=== PATIENT | female | born 1955 | race Caucasian/White ===

== ENCOUNTER 2018-09-12 17:29 | Inpatient (IN) ==
--- NOTE | 2018-09-12 17:36 | ED ---
HPI General Chief Complaint: Chest Pain Stated Complaint: Chest Pain Time Seen by Provider: 09/12/18 17:33 History of Present Illness HPI narrative: 63-year-old female with a history of lupus, anxiety, depression, DVT presents to the emergency department for evaluation of chest pain. Patient states that the past 2 days she has had an episode of chest pain each day lasting approximately 1 hour, states it was mild intermittent chest pain. States that today she has had an episode of chest pain lasting the last 4 hours and states that the severity has been increasing. Describes it as a pressure to the left anterior chest. States that she is now starting to feel short of breath as well. States she is also having mild nausea. She denies any fever, chills, vomiting, diarrhea, abdominal pain, cough or cold symptoms, swelling of the extremities. Denies any recent travel. Denies any surgeries. No other complaints. Related Data Home Medications Medication Instructions Recorded Confirmed Aleve 09/12/18 alprazolam [Xanax] 0.5 mg PO TID 09/12/18 09/12/18 bupropion HCl [Wellbutrin XL] 300 mg PO QAM 09/12/18 09/12/18 calcium carbonate-vitamin D3 09/12/18 [Calcium 500 + D (D3)] denosumab [Prolia] 60 mg SUBCUT [id number] 09/12/18 09/12/18 fluoxetine [Prozac] 40 mg PO DAILY 09/12/18 09/12/18 hydroxychloroquine [Plaquenil] 200 mg PO BID 09/12/18 09/12/18 levothyroxine [Synthroid] 137 mcg PO DAILY 09/12/18 09/12/18 prednisone 09/12/18 09/12/18 topiramate [Topamax] 100 mg PO Q4H 09/12/18 09/12/18 Allergies Allergy/AdvReac Type Severity Reaction Status Date / Time meperidine Allergy Severe Nausea/Vomi Unverified 05/14/17 13:43 ting Review of Systems ROS: all other systems reviewed are negative [facility] Medical History Medical History History of DVT (deep vein thrombosis) (Acute) History of anxiety (Acute) History of colon cancer (Acute) History of depression (Acute) History of hypothyroidism (Acute) History of hysterectomy (Acute) History of lupus (Acute) History of neuropathy (Acute) Surgical History Surgical History History of cholecystectomy (Acute) History of parotidectomy (Acute) History of splenectomy (Acute) History of thyroid surgery (Acute) History of thyroidectomy (Acute) Social History Social History Substance History: No History of Abuse Second Hand Smoke Exposure: No Smoking Status: Never smoker How Often Do You Have a Drink Containing Alcohol: Never Recent Travel in [facility] within the Last 8 Weeks: No Recent Out of Country Travel within the Last 8 Weeks: No Exam Narrative Exam Narrative: GENERAL: Well-nourished and well-developed pleasant patient in no acute distress who is nontoxic appearing. SKIN: Warm and dry without any obvious rashes or lesions. HEAD: Normocephalic and atraumatic. EYES: No injection, drainage, or hyphema noted. PERRLA. EOMI. ENT: No nasal drainage noted. Oropharynx is clear. NECK: Supple and the trachea is midline. CARDIOVASCULAR: Regular rate and rhythm. RESPIRATORY: Breath sounds are equal bilaterally with no accessory muscle use, wheezing, rhonchi, or crackles. Mild tenderness to palpation of left anterior chest wall. GASTROINTESTINAL: Abdomen is soft, non-tender, and nondistended. MUSCULOSKELETAL: No obvious deformities, swelling, cyanosis, or ecchymosis is present throughout the upper and lower extremities. Patient has full range of motion without any signs of neurovascular compromise. Distal pulses are 2+ throughout. NEUROLOGICAL: Awake, alert, and oriented. Normal speech and gait. Cranial nerves are grossly intact. Course Initial Documented Vital Signs Pulse Rate 90 09/12/18 17:34 Pulse Oximetry 95 09/12/18 17:34 Last Documented Vital Signs Pulse Rate 70 09/12/18 18:36 Respiratory Rate 16 09/12/18 18:36 Blood Pressure 116/68 09/12/18 18:36 Pulse Oximetry 96 09/12/18 18:36 Medical Decision Making ITZEL Attestation ITZEL supervised visit: Yes Attestation: I, Dr. Hastings, have reviewed the advance practice practitioner's documentation and am in agreement, met with the patient face to face, made the diagnosis, and the medical decision making was done by me. *My assessment and Findings: This patient is awake and alert. She is complaining with intermittent left-sided chest pain which is been bothering her for the last several days but which has become worse today. Please see Suni Huynh, PA-C's note for full details of the H&P and disposition. MDM Narrative Medical decision making narrative: 63-year-old female presents to the emergency department for evaluation of left side chest pain and shortness of breath. Patient is afebrile, vital signs are stable. IV access is obtained, labs have been drawn and sent. Patient is placed on cardiac telemetry and pulse oximetry monitoring. EKG shows sinus rhythm with nonspecific T wave abnormalities in lead V3, no acute ST elevations or depressions. EKG reviewed by my attending physician. Patient administered nitro sublingual tablets for chest pain. CBC is unremarkable. CMP is unremarkable. Troponin is 0.03. Chest x-ray is negative. CT pulmonary angiogram is negative for PE. Patient reassessed and reports that nitro tablets greatly improved her chest pain, states that she now only has minimal pain with inspiration. Discussed with the patient and she is agreeable to stay for observation and chest pain center. I discussed the case with my attending physician Dr. Hastings who is aware of the patients history, physical examination findings, and treatment plan. Medical Screen Exam Complete: Yes Emergency Medical Condition: Yes Differential Diagnosis Differential Diagnosis: ACS versus PE versus pleurisy versus musculoskeletal pain Lab Data Result diagrams: 09/12/18 17:53 09/12/18 17:53 Lab Results 09/12/18 09/12/18 Range/Units 17:53 17:53 CBC w Diff Auto diff final WBC 8.7 (4.0-11.0) th/mm3 RBC 4.25 (4.00-5.30) mil/mm3 Hgb 13.3 (11.6-15.3) gm/dL Hct 41.3 (35.0-46.0) % MCV 97.3 (80.0-100.0) fL MCH 31.3 (27.0-34.0) pg MCHC 32.1 (32.0-36.0) % RDW 13.5 (11.6-17.2) % Plt Count 242 (150-450) th/mm3 MPV 9.4 (7.0-11.0) fL Neut % (Auto) 75.9 H (16.0-70.0) % Lymph % (Auto) 15.8 (9.0-44.0) % [place] % (Auto) 6.1 (0.0-8.0) % Eos % (Auto) 1.8 (0.0-4.0) % Baso % (Auto) 0.4 (0.0-2.0) % Neut # (Auto) 6.6 (1.8-7.7) th/mm3 Lymph # (Auto) 1.4 (1.0-4.8) th/mm3 [place] # (Auto) 0.5 (0.0-0.9) th/mm3 Eos # (Auto) 0.2 (0.0-0.4) th/mm3 Baso # (Auto) 0.0 (0.0-0.2) th/mm3 WBC Differential . Differential Comment . Sodium 141 (136-145) meq/L Potassium 3.9 (3.5-5.1) meq/L Chloride 111 H (98-107) meq/L Carbon Dioxide 22.3 (21.0-32.0) meq/L Anion Gap 8 (5-15) meq/L BUN 15 (7-18) mg/dL Creatinine 0.98 (0.50-1.00) mg/dL Estimated GFR 57 L (>89) mL/min Random Glucose 95 (74-106) mg/dL Calcium 8.2 L (8.5-10.1) mg/dL Total Bilirubin 0.4 (0.2-1.0) mg/dL AST 25 (15-37) U/L ALT 17 (10-53) U/L Alkaline Phosphatase 58 (45-117) U/L Troponin I 0.03 (0.02-0.05) ng/mL Total Protein 6.8 (6.4-8.2) g/dL Albumin 3.0 L (3.4-5.0) g/dL Imaging Data Radiologist's impression: Chest X-Ray 09/12/18 17:34 CONCLUSION: No acute intrathoracic disease. Chest CTA 09/12/18 17:43 CONCLUSION: 1. No CT evidence for pulmonary artery embolism as questioned. 2. Minimal atelectasis in the left lower lobe. ECG Data EKG Prior to Arrival: No Attestation: I personally reviewed and interpreted this ECG as follows: (EKG shows normal sinus rhythm with a rate of 77. She has some nonspecific lateral T wave abnormalities.) Prior ECG tracings: available for review Discharge Plan Discharge Disposition Patient Disposition: ED Admit(ED Internal Use Only) Discharge Order Discharge Orders: ED Use Only Admit Order (Routine); Ordered 09/12/18 Ordered By: Soraida Hastings Discharge Details Diagnosis: Chest pain Physicians Team ED Provider: Soraida Hastings ED Midlevel Provider: Suni Huynh Primary Care Provider: Jim Camara Attending Provider: Brice Zavala Status ED Status: Admitted Patient
--- NOTE | 2018-09-12 17:44 | ED ---
HPI General Chief complaint: Chest Pain Stated complaint: Chest Pain Time Seen by Provider: 09/12/18 17:33 Related Data Allergies Allergy/AdvReac Type Severity Reaction Status Date / Time meperidine Allergy Severe Nausea/Vomi Unverified 05/14/17 13:43 ting Discharge Plan Physicians Team ED Provider: Soraida Hastings ED Midlevel Provider: Suni Huynh Primary Care Provider: Jim Camara Status ED Status: With Doctor
--- NOTE | 2018-09-12 17:55 | XR ---
EXAM DATE: 09/12/2018 5:52 PM EST AGE/SEX: 63 years / Female INDICATIONS: Left sided chest pain. CLINICAL DATA: This is the patient's initial encounter. Patient reports that signs and symptoms have been present for 1 day and indicates a pain score of 4/10. MEDICAL/SURGICAL HISTORY: . Carcinoma, colon. None. COMPARISON: . FINDINGS: A single AP view of the chest demonstrates the lungs to be symmetrically aerated without evidence of mass, infiltrate or effusion. The cardiomediastinal contours are unremarkable. Osseous structures a re intact. CONCLUSION: No acute intrathoracic disease. Electronically signed by: Marky Mcintyre MD Board Certified Radiologist 09/12/2018 5:53 PM EST
[2018-09-12 17:58] LABS: Baso % (Auto) 0.4 % (0.0-2.0); Eos # (Auto) 0.2 th/mm3 (0.0-0.4); Eos % (Auto) 1.8 % (0.0-4.0); Hematocrit 41.3 % (35.0-46.0); Hemoglobin 13.3 gm/dL (11.6-15.3); Lymph # (Auto) 1.4 th/mm3 (1.0-4.8); Lymph % (Auto) 15.8 % (9.0-44.0); Mean Corpuscular HGB Conc 32.1 % (32.0-36.0); Mean Corpuscular Hemoglobin 31.3 pg (27.0-34.0); Mean Corpuscular Volume 97.3 fL (80.0-100.0); Mean Platelet Volume 9.4 fL (7.0-11.0); Mono # (Auto) 0.5 th/mm3 (0.0-0.9); Mono % (Auto) 6.1 % (0.0-8.0); Neut # (Auto) 6.6 th/mm3 (1.8-7.7); Neut % (Auto) 75.9 % (16.0-70.0); Platelet Count 242 th/mm3 (150-450); Red Blood Count 4.25 mil/mm3 (4.00-5.30); Red Cell Distribution Width 13.5 % (11.6-17.2); White Blood Count 8.7 th/mm3 (4.0-11.0)
[2018-09-12 18:09] LABS: Chloride 111 meq/L (98-107); Potassium 3.9 meq/L (3.5-5.1); Sodium 141 meq/L (136-145)
[2018-09-12 18:12] LABS: Calcium 8.2 mg/dL (8.5-10.1)
[2018-09-12 18:13] LABS: Anion Gap 8 meq/L (5-15); Blood Urea Nitrogen 15 mg/dL (7-18); Carbon Dioxide 22.3 meq/L (21.0-32.0); Glucose,Random 95 mg/dL (74-106)
[2018-09-12 18:16] LABS: Alanine Aminotransferase 17 U/L (10-53); Aspartate Aminotransferase 25 U/L (15-37); Glomerular Filtration Rate 57 mL/min (>89)
[2018-09-12 18:17] LABS: Total Protein 6.8 g/dL (6.4-8.2)
[2018-09-12 18:19] LABS: Alkaline Phosphatase 58 U/L (45-117)
[2018-09-12 18:21] LABS: Troponin I 0.03 ng/mL (0.02-0.05)
--- NOTE | 2018-09-12 18:54 | CT ---
EXAM DATE: 09/12/2018 6:50 PM EST AGE/SEX: 63 years / Female INDICATIONS: Left chest pain and pressure. CLINICAL DATA: This is the patient's initial encounter. Patient reports that signs and symptoms have been present for 2 days and indicates a pain score of 6/10. MEDICAL/SURGICAL HISTORY: Lupus. Deep venous thrombosis. Carcinoma, colon. Colon resection. Chol ecystectomy. Hysterectomy. RADIATION DOSE: 19.98 CTDI (mGy) COMPARISON: [facility], CHEST 1V SINGLE AP, 09/12/2018. . TECHNIQUE: Volumetric scanning was performed using a multi-row detector CT scanner during bolus infu cyndee of 75 ml Omnipaque 350 (iohexol) nonionic water-soluble contrast as a single exam dose. The wesly a was post processed with a variety of visualization algorithms including full volume maximum intensi ty projection and sliding thin slab reformation. Using automated exposure control and adjustment of the mA and/or kV according to patient size, radiation dose was kept as low as reasonably achievable t o obtain optimal diagnostic quality images. DICOM format image data is available electronically for review and comparison. FINDINGS: Pulmonary Arteries: No filling defects are seen in the pulmonary arteries through the segmental vess els. The main pulmonary artery is normal in diameter. Lung: Minimal groundglass opacities in the posterior left lower lobe. Pleura: No effusion, significant pleural thickening or pneumothorax. Mediastinum: Heart is unremarkable without pericardial effusion.No evidence of mediastinal or hilar adenopathy. Osseous Structures: No abnormal focal lytic or blastic bony lesions. Other: Visulaized upper abdomen is unremarkable. CONCLUSION: 1. No CT evidence for pulmonary artery embolism as questioned. 2. Minimal atelectasis in the left lower lobe. Electronically signed by: Torin Solorzano MD Board Certified Radiologist 09/12/2018 6:52 PM SUM[facility] Garcia
[2018-09-12] MEDS ORDERED: Sodium Chlor 0.9% Inj 500 ML IV.SIG SCH (19:00)
[2018-09-12 21:33] LABS: Troponin I 0.03 ng/mL (0.02-0.05)
[2018-09-12] MEDS ORDERED: Topiramate 100 MG Tablet PO SCH (22:00)
[2018-09-12] MEDS: Hydroxychloroquine 200 MG Tablet PO SCH (22:14)
[2018-09-12] MEDS ORDERED: ALPRAZolam 0.5 MG Tablet PO ONE (23:07)
[2018-09-13 00:21] LABS: Troponin I 0.04 ng/mL (0.02-0.05)
--- NOTE | 2018-09-13 07:49 | P.HP ---
History of Present Illness Primary Care Physician: Jim Camara Chief Complaint: chest pain History of Present Illness: This is a 63-year-old female patient with a known medical history of lupus, anxiety and depression, hypothyroidism and history of DVT who presented to the ED with complaints of chest pain. Patient states that the last 4 days she has had intermittent chest pain, she states that the pain is located in her midsternal chest, is pressure-like in nature, radiates up her neck and is associated with nausea. Denies any associated vomiting, shortness of breath or sweating. Patient states that when the pain occurs she does not notice any aggravating factors. She states that the pain lasted roughly an hour and then resolves on its own. It is worse with deep breathing. Does state that the pain improved with use of nitroglycerin in the ED. She states that she has never had this type of pain before. She denies any recent fever, chills, cough , headache, vomiting, nausea, vomiting, diarrhea or dysuria. Her appetite has been good. She states that she may be dehydrated, she states she has not been drinking enough fluids lately. 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 Denies any cardiovascular disease. Family history is unknown, patient is adopted. Denies smoking or alcohol. - Diagnosis (1) Chest pain (2) Depression (3) Hypothyroidism Review of Systems All other systems reviewed negative except as stated in HPI PMFSH - History History Provided By: Patient - Medical History Medical History: Medical History (Last Reviewed 09/13/18 @ 08:49 by Kaelyn Nicholas) History of DVT (deep vein thrombosis) History of anxiety History of colon cancer History of depression History of hypothyroidism History of hysterectomy History of lupus History of neuropathy - Surgical History Surgical History: Surgical History (Last Reviewed 09/13/18 @ 08:49 by Kaelyn Nicholas) History of cholecystectomy History of parotidectomy History of splenectomy History of thyroid surgery History of thyroidectomy - Family History Family History: Family History (Last Updated 09/13/18 @ 08:49 by Kaelyn Nicholas) Other Family history non-contributory - Social History I have reviewed the patient's Social History: Yes - Tobacco History Second Hand Smoke Exposure: No Tobacco Use In Past 30 Days: No Smoking Status: Never smoker - Alcohol History How Often Do You Have a Drink Containing Alcohol: Never - Substance Use History Substance History: No History of Abuse - Travel History Recent Travel in the [place] Within the Last 8 Weeks: No Recent Travel Out of the Country Within the Last 8 Weeks: No - Immunization History Tetanus Immunization: Unsure Medications and Allergies Active Medications: Active Medications Bupropion HCl (Wellbutrin Sr) 150 mg PO Q12H [facility] Fluoxetine HCl (Prozac) 40 mg PO DAILY [facility] Hydroxychloroquine Sulfate (Plaquenil) 200 mg PO BID [facility] Last Admin: 09/12/18 22:14 Dose: 200 mg Levothyroxine Sodium (Synthroid) 112 mcg PO DAILY [facility] Levothyroxine Sodium (Synthroid) 25 mcg PO DAILY [facility] Sodium Chloride (Ns Flush) 2 ml IV.FLUSH UNSCH PRN PRN Reason: FLUSH AFTER USING IV ACCESS Sodium Chloride (Ns Flush) 2 ml IV.FLUSH BID [facility] Last Admin: 09/12/18 22:16 Dose: 2 ml Sodium Chloride (Ns Flush) 2 ml IV.FLUSH PRN PRN PRN Reason: FLUSH AFTER USING IV ACCESS Topiramate (Topamax) 50 mg PO HS [facility] Topiramate (Topamax) 25 mg PO DAILY [facility] Allergies Allergy/AdvReac Type Severity Reaction Status Date / Time meperidine Allergy Severe Nausea/Vomi Verified 09/12/18 22:13 ting Home Medications Medication Instructions Recorded Confirmed Type Aleve 09/12/18 History alprazolam [Xanax] 0.5 mg PO TID 09/12/18 09/12/18 History bupropion HCl [Wellbutrin XL] 300 mg PO QAM 09/12/18 09/12/18 History calcium carbonate-vitamin D3 500 mg PO DAILY 09/12/18 09/12/18 History [Calcium 500 + D (D3)] denosumab [Prolia] 60 mg SUBCUT [id number] 09/12/18 09/12/18 History fluoxetine [Prozac] 40 mg PO DAILY 09/12/18 09/12/18 History hydroxychloroquine [Plaquenil] 200 mg PO BID 09/12/18 09/12/18 History levothyroxine [Synthroid] 137 mcg PO DAILY 09/12/18 09/12/18 History prednisone 09/12/18 09/12/18 History topiramate [Topamax] See Label Instructions .ROUTE 09/12/18 09/12/18 History .COMPLEX Exam Vital signs: Vital Signs 09/12/18 17:34 09/12/18 17:56 09/12/18 18:18 Temperature Pulse Rate 90 76 86 Respiratory Rate 20 16 Blood Pressure 166/87 H 122/54 L Pulse Oximetry 95 98 96 09/12/18 18:23 09/12/18 18:30 09/12/18 18:36 Temperature Pulse Rate 80 76 70 Respiratory Rate 16 16 16 Blood Pressure 133/69 100/69 116/68 Pulse Oximetry 96 95 96 09/12/18 21:30 09/12/18 22:00 09/12/18 22:07 Temperature 98.7 F Pulse Rate 71 77 Respiratory Rate 18 Blood Pressure 128/73 Pulse Oximetry 97 97 09/12/18 23:59 09/13/18 00:00 09/13/18 04:00 Temperature 96.1 F L 96.4 F L Pulse Rate 69 69 70 Respiratory Rate 18 17 Blood Pressure 119/65 119/60 Pulse Oximetry 97 96 09/13/18 04:15 Temperature Pulse Rate Respiratory Rate Blood Pressure Pulse Oximetry 97 Intake & Output 09/12/18 09/13/18 09/13/18 18:59 06:59 18:59 Intake Total 980 / 980 Balance 980 / 980 Weight 100 kg 103.2 kg Intake: IV 500 / 500 NS Inj 500 ML @ 1000 mls/hr IV. 500 / 500 SIG BOLUS MELINDA Rx#:[id number] Oral 480 / 480 Other: Weight On Admission 103.2 kg Narrative: GENERAL: Well-developed, obese female patient in [facility]. SKIN: Warm and dry. No rash. HEAD: Normocephalic. Atraumatic. EYES: Pupils equal and round. No scleral icterus. No injection or drainage. ENT: No nasal bleeding or discharge. Mucous membranes pink and moist. NECK: Supple. Trachea midline. CARDIOVASCULAR: Regular rate and rhythm. S1, S2 noted. No murmur appreciated. No chest pain to palpation RESPIRATORY: No accessory muscle use. Clear to auscultation. Breath sounds equal bilaterally. GASTROINTESTINAL: Abdomen soft, non-tender, nondistended. Normoactive bowel sounds x4. MUSCULOSKELETAL: No obvious deformities. Extremities without clubbing, cyanosis , or edema. NEUROLOGICAL: Awake and alert. No obvious cranial nerve deficits. Motor grossly within normal limits. 5/5 muscle strength in bilateral upper and lower extremities. Normal speech. PSYCHIATRIC: Appropriate mood and affect; insight and judgment normal. Results - Labs CBC & Chem 7: 09/12/18 17:53 09/12/18 17:53 Labs: Laboratory Results - last 24 hr 09/12/18 09/12/1818 17:53 17:53 21:02 CBC w Diff Auto diff final WBC 8.7 RBC 4.25 Hgb 13.3 Hct 41.3 MCV 97.3 MCH 31.3 MCHC 32.1 RDW 13.5 Plt Count 242 MPV 9.4 Neut % (Auto) 75.9 H Lymph % (Auto) 15.8 [place] % (Auto) 6.1 Eos % (Auto) 1.8 Baso % (Auto) 0.4 Neut # (Auto) 6.6 Lymph # (Auto) 1.4 [place] # (Auto) 0.5 Eos # (Auto) 0.2 Baso # (Auto) 0.0 WBC Differential . Differential Comment . Sodium 141 Potassium 3.9 Chloride 111 H Carbon Dioxide 22.3 Anion Gap 8 BUN 15 Creatinine 0.98 Estimated GFR 57 L Random Glucose 95 Calcium 8.2 L Total Bilirubin 0.4 AST 25 ALT 17 Alkaline Phosphatase 58 Total Creatine Kinase 161 Troponin I 0.03 0.03 Total Protein 6.8 Albumin 3.0 L 09/12/18 23:40 CBC w Diff WBC RBC Hgb Hct MCV MCH MCHC RDW Plt Count MPV Neut % (Auto) Lymph % (Auto) [place] % (Auto) Eos % (Auto) Baso % (Auto) Neut # (Auto) Lymph # (Auto) [place] # (Auto) Eos # (Auto) Baso # (Auto) WBC Differential Differential Comment Sodium Potassium Chloride Carbon Dioxide Anion Gap BUN Creatinine Estimated GFR Random Glucose Calcium Total Bilirubin AST ALT Alkaline Phosphatase Total Creatine Kinase 149 Troponin I 0.04 Total Protein Albumin - Imaging Impressions Chest X-Ray 09/12/18 17:34 CONCLUSION: No acute intrathoracic disease. Chest CTA 09/12/18 17:43 CONCLUSION: 1. No CT evidence for pulmonary artery embolism as questioned. 2. Minimal atelectasis in the left lower lobe. Caprini VTE Risk Assessment Caprini VTE Risk Assessment: Moderate/High Risk (score >= 2) Caprini Risk Assessment Model: Point Value = 1 Point Value = 2 Point Value = 3 Point Value = 5 Age 41-60 Minor surgery BMI > 25 kg/m2 Swollen legs Varicose veins or History of unexplained or recurrent spontaneous Oral contraceptives or hormone replacement Sepsis (< 1 month) Serious lung disease, including pneumonia (< 1 month) Abnormal pulmonary function Acute myocardial infarction Congestive heart failure (< 1 month) History of inflammatory bowel disease Medical patient at bed rest Age 61-74 Arthroscopic surgery Major open surgery (> 45 min) Laparoscopic surgery (> 45 min) Malignancy Confined to bed (> 72 hours) Immobilizing plaster cast Central venous access Age >= 75 History of VTE Family history of VTE Factor V Leiden Prothrombin [id number] Lupus anticoagulant Anticardiolipin antibodies Elevated serum homocysteine Heparin-induced thrombocytopenia Other congenital or acquired thrombophilia Stroke (< 1 month) Elective arthroplasty Hip, pelvis, or leg fracture Acute spinal cord injury (< 1 month) Prophylaxis Regimen: Total Risk Factor Score Risk Level Prophylaxis Regimen 0-1 Low Early ambulation 2 Moderate Order ONE of the following: *Sequential Compression Device (SCD) *Heparin 5000 units SQ BID 3-4 Higher Order ONE of the following medications: *Heparin 5000 units SQ TID *Enoxaparin/Lovenox 40 mg SQ daily (WT < 150 kg, CrCl > 30 mL/min) *Enoxaparin/Lovenox 30 mg SQ daily (WT < 150 kg, CrCl > 10-29 mL/min) *Enoxaparin/Lovenox 30 mg SQ BID (WT < 150 kg, CrCl > 30 mL/min) AND/OR *Sequential Compression Device (SCD) 5 or more Highest Order ONE of the following medications: *Heparin 5000 units SQ TID (Preferred with Epidurals) *Enoxaparin/Lovenox 40 mg SQ daily (WT < 150 kg, CrCl > 30 mL/min) *Enoxaparin/Lovenox 30 mg SQ daily (WT < 150 kg, CrCl > 10-29 mL/min) *Enoxaparin/Lovenox 30 mg SQ BID (WT < 150 kg, CrCl > 30 mL/min) AND *Sequential Compression Device (SCD) Assessment and Plan - Assessment (1) Chest pain Code(s): R07.9 - Chest pain, unspecified Status: Acute Plan: Patient has been admitted to the chest pain center for observation. Serial EKGs and serial troponins have been ordered for ruling out ACS purposes. Serial troponins flat. EKG reviewed, showing sinus rhythm with nonspecific T wave changes in V2 and 3. No ST changes to indicate any ischemia. Cardiac telemetry continued overnight, no arrhythmias overnight. Chest x-ray reviewed, no acute cardiopulmonary disease noted. Patient was given nitroglycerin in the ED which did help improve the pain. CBC and CMP reviewed, essentially unremarkable. A CTA was done which was negative for any PE. ACS has been ruled out with serial EKGs and serial troponins, patient will undergo a cardiac Lexiscan to further rule out any ischemia. Patient is stable at this time and agreeable to the plan. Further hospitalization and treatment plan will depend on nuclear imaging results. (2) Depression Code(s): F32.9 - Major depressive disorder, single episode, unspecified Status : Acute Plan: Continue home Prozac and Wellbutrin. (3) Hypothyroidism Code(s): E03.9 - Hypothyroidism, unspecified Status: Acute Plan: Continue home levothyroxine. DVT prophylaxis: SCDs. (1) Chest pain Qualifiers: Chest pain type: unspecified Qualified Code(s): R07.9 - Chest pain, unspecified
[2018-09-13] MEDS: Hydroxychloroquine 200 MG Tablet PO SCH (07:57)
[2018-09-13] MEDS ORDERED: buPROPion 150 MG 12 HR Tablet PO SCH (09:00)
[2018-09-13] MEDS ORDERED: Levothyroxine 112 MCG Tablet PO SCH (09:00)
[2018-09-13] MEDS ORDERED: Topiramate 25 MG Tablet PO SCH (09:00)
[2018-09-13] MEDS ORDERED: FLUoxetine 20 MG Capsule PO SCH (09:00)
--- NOTE | 2018-09-13 10:19 | ECG ---
Date Performed: 09/12/2018 Time Performed: 23:22:19 PTAGE: 63 years EKG: Sinus rhythm MODERATE T-WAVE ABNORMALITY, CONSIDER ANTEROLATERAL ISCHEMIA ABNORMAL ECG Since the PREVIOUS TRACING , no significant change noted PREVIOUS TRACIN09/12/2018 20.58 DOCTOR: Aryan Fung Interpretating Date/Time 09/13/2018 10:19:05
--- NOTE | 2018-09-13 10:20 | ECG ---
Date Performed: 09/12/2018 Time Performed: 20:58:38 PTAGE: 63 years EKG: Sinus rhythm WITH SINUS ARRHYTHMIA MODERATE T-WAVE ABNORMALITY, CONSIDER ANTERIOR ISCHEMIA ABNORMAL ECG Since the PREVIOUS TRACING , no significant change noted PREVIOUS TRACIN09/12/2018 17.37 DOCTOR: Aryan Fung Interpretating Date/Time 09/13/2018 10:19:15
[2018-09-13] MEDS ORDERED: Regadenoson Inj 0.4 MG/5 ML Syringe IV.PUSH ONE (11:10)
--- NOTE | 2018-09-13 11:32 | ECG ---
Date Performed: 09/12/2018 Time Performed: 17:37:29 PTAGE: 63 years EKG: Sinus rhythm WITH SINUS ARRHYTHMIA MODERATE T-WAVE ABNORMALITY, CONSIDER ANTERIOR ISCHEMIA ABNORMAL ECG Compared to PREVIOUS TRACING anterior T wave changes are now present PREVIOUS TRACIN12/06/2015 11 .25 DOCTOR: Aryan Fung Interpretating Date/Time 09/13/2018 11:32:06
--- NOTE | 2018-09-13 12:24 | NM ---
EXAM DATE: 09/13/2018 12:08 PM EST AGE/SEX: 63 years / Female INDICATIONS:Angina. . Midsternal chest pain. CLINICAL DATA: This is the patient's initial encounter. Patient reports that signs and symptoms have been present for 1 day and indicates a pain score of 2/10. MEDICAL/SURGICAL HISTORY: Carcinoma, colon. Lupus. Hypothyroidism. Hysterectomy. Thyroidecto my. Cholecystectomy. COMPARISON: No prior exams available for comparison. DOSE: 11 mCi Tc 99m Myoview at rest 35 mCi [id number] at stress 0.4 mg Lexiscan STRESS SYMPTOMS: None. EJECTION FRACTION: >70 % TECHNIQUE: The patient underwent pharmacologic stress with infusion of prescribed dose. Continuous ECG tracing was monitored during stress. Gated SPECT imaging was performed after stress and conventi onal SPECT imaging was performed at rest. The examination was performed on a SPECT/CT scanner, both attenuation and non-corrected datasets were reviewed. FINDINGS: Distribution: The maximum perfused segment at stress is in the septal wall. Perfusion Study: The pattern of perfusion at stress is within normal limits. Gated Study: There are intact wall motion and wall thickening without hypokinetic or dyskinetic segm ents. The ejection fraction is calculated at >70%. RISK CATEGORY: Low (<1% Annual Motality Rate) CONCLUSION: 1. No evidence of fixed or reversible perfusion defects. Normal wall motion and normal ejection frac tion. Electronically signed by: Kelly Dickson MD Board Certified Radiologist 09/13/2018 12:22 PM [facility] HARPER
[2018-09-13] MEDS ORDERED: Topiramate 100 MG Tablet PO SCH (21:00)
--- NOTE | 2018-09-14 14:56 | TR ---
Date Performed: 09/13/2018 Time Performed: 11:34:18 DOCTOR: Andrews Denson DRUG LIST: CLINICAL HISTORY: REASON FOR TEST: REASON FOR ENDING: OBSERVATION: CONCLUSION: Lexiscan stress test was performed under standard four minute protocol. Radionuclide was injected one minute prior to ending the test. No electrocardiographic abormalities were present to suggest ischemia. Nuclear imaging and interpretation are pending. COMMENTS:
== END 2018-09-13 15:13 | disposition home or self-care (01) ==
LOC: PHED 17:29 → INTOOBSV 20:35 → PHEDA 20:35 → PH3 21:18
PROVIDERS: ADMIT Hospitalist; ATTEND Hospitalist